=== PATIENT | male | born 1955 | race Caucasian/White ===

== ENCOUNTER → 2023-10-06 08:11 | Outpatient (REF) | payer OTHER, SELFPAY | LOC: DHCBS MAIN 08:11 | PROVIDERS: ATTENDING PHYSICIAN Internal Medicine Cardiovascular Disease; FAMILY PHYSICIAN Family Medicine | DX: I34.0 Nonrheumatic mitral (valve) insufficiency (principal) | CPT/HCPCS: 93306 ==